=== PATIENT | male | born 1960 | race Caucasian/White ===

== ENCOUNTER → 2024-07-30 07:53 | Outpatient (REF) | payer BC, SELFPAY | LOC: RSP 07:53 | PROVIDERS: ATTENDING PHYSICIAN Nurse Practitioner Family | DX: R06.2 Wheezing (principal) | CPT/HCPCS: 94727; 94729; 88738; 94060 ==

== ENCOUNTER → 2024-09-08 09:37 | Outpatient (REF) | payer BC, SELFPAY | LOC: RAD 09:37 | PROVIDERS: ATTENDING PHYSICIAN Nurse Practitioner Family | DX: R06.2 Wheezing (principal) | CPT/HCPCS: 71046 ==